=== PATIENT | male | born 1975 | race Hispanic/Latino ===

== ENCOUNTER 2018-03-27 00:52 | Emergency (ER) | payer OTHER, SELFPAY ==
--- NOTE | 2018-03-27 08:05 | RAD ---
THREE VIEWS LEFT FOOT: DATE: 03/27/2018. COMPARISON: None. HISTORY: Injury, trauma, pain. FINDINGS/IMPRESSION: The bones are markedly osteopenic, limiting detailed assessment. There are screws traversing the 1st , 2nd, 3rd, 4th, and 5th phalanges, associated with the interphalangeal joints on the basis of fusion . There are displaced fractures noted at the base of the 2nd and 3rd metatarsal heads, which appear chronic in nature. There is soft tissue swelling involving the forefoot. There are foci of subcutan eous gas in the region of the forefoot medially and dorsally. This gas is of uncertain significance/ etiology and may be on the basis of a gas-forming infectious process. Clinical correlation is essent ial. No evidence for dislocation. Results called to Dr. Phoenix at 7:38 a.m. 03/27/2018. CODE CR POS: [id number]
== END 2018-03-27 02:49 | disposition home or self-care (01) ==
LOC: ERS 00:52
DX: G89.18 Other acute postprocedural pain (principal); M79.672 Pain in left foot; M54.12 Radiculopathy, cervical region; F41.9 Anxiety disorder, unspecified; Z79.899 Other long term (current) drug therapy; Z79.891 Long term (current) use of opiate analgesic

== ENCOUNTER 2018-07-14 12:35 | Outpatient (CLI) | payer OTHER ==
--- NOTE | 2018-07-14 13:20 | RAD ---
RIGHT FOOT 2 VIEWS: Date: 07/14/18 HISTORY: Disability evaluation. FINDINGS: Small spur from the posterior calcaneus. Mild degenerative changes at the intertarsal and tarsometata rsal joints. Prior osteotomy involving the distal first metatarsal with screw transfixing this location. Small scr ew transfixes the head of the second metatarsal. There are metallic screws transfixing the IP joints of the first, third, fourth, and fifth toes. IMPRESSION: Degenerative and postoperative changes as described. POS: [facility]
--- NOTE | 2018-07-14 13:38 | RAD ---
CERVICAL SPINE AP AND LATERAL VIEWS: Date: 07/14/18 HISTORY: Disability. FINDINGS: There are mild degenerative changes of the cervical spine. Mild loss of disc space at C4-5. Mild ante rior osteophytes at C4-5 and C5-6 and C6-7. Vertebral body height is maintained. Posterior alignment is preserved. Mild facet hypertrophy is seen throughout the cervical spine. IMPRESSION: Mild to moderate degenerative changes as described. POS: [facility]
== END 2018-07-14 12:36 | disposition home or self-care (01) ==
LOC: BICRAD 12:35
PROVIDERS: ATTEND Psychiatry & Neurology Psychiatry
DX: Z02.71 Encounter for disability determination (principal); M47.812 Spondylosis without myelopathy or radiculopathy, cervical region; M19.071 Primary osteoarthritis, right ankle and foot; Z98.890 Other specified postprocedural states
CPT/HCPCS: 72040

== ENCOUNTER 2019-10-23 16:39 | Emergency (ER) | payer OTHER ==
[2019-10-25 12:26] LABS: SARS-CoV-2 MS2 Positive; SARS-CoV-2 N Gene Positive; SARS-CoV-2 S Gene Positive; SARS-CoV-2 orf1ab Positive
== END 2019-10-23 17:20 | disposition home or self-care (01) ==
LOC: ERS 16:39
DX: U07.1 COVID-19 (principal); M10.9 Gout, unspecified; F41.9 Anxiety disorder, unspecified; Z79.899 Other long term (current) drug therapy
CPT/HCPCS: 87635; 99283; U0003

== ENCOUNTER 2019-11-02 11:00 | Emergency (ER) | payer OTHER | END 2019-11-02 11:46 | disposition home or self-care (01) | LOC: ERS 11:00 | DX: U07.1 COVID-19 (principal); M10.9 Gout, unspecified; M06.9 Rheumatoid arthritis, unspecified; F41.9 Anxiety disorder, unspecified; Z79.891 Long term (current) use of opiate analgesic; Z79.899 Other long term (current) drug therapy | CPT/HCPCS: 99282 ==

== ENCOUNTER 2020-06-24 09:03 | Outpatient (CLI) | payer OTHER | END 2020-06-24 09:04 | disposition home or self-care (01) | LOC: DTY/OP 09:03 | PROVIDERS: ATTEND Surgery | DX: Z48.815 Encounter for surgical aftercare following surgery on the digestive system (principal); Z98.84 Bariatric surgery status | CPT/HCPCS: 97802 ==

== ENCOUNTER 2023-01-25 13:31 | Outpatient (CLI) | payer BC, OTHER | END 2023-01-25 13:32 | disposition home or self-care (01) | LOC: SCSMRI 13:31 | PROVIDERS: ATTEND Neuromusculoskeletal Medicine & OMM | DX: M54.12 Radiculopathy, cervical region (principal); M54.2 Cervicalgia | CPT/HCPCS: 72141 ==

== ENCOUNTER 2023-10-30 20:53 | Inpatient (IN) | payer SELFPAY ==
[2023-10-30] MEDS ORDERED: Ondansetron ODT 4 MG TAB SL PRN (21:15)
[2023-10-30] MEDS ORDERED: Ondansetron PF 4 MG/2 ML Vial IVP PRN ×2 (21:15→21:38)
[2023-10-30] MEDS ORDERED: Acetaminophen 650 MG Suppository PR PRN (21:38)
[2023-10-30] MEDS ORDERED: Ondansetron ODT 4 MG TAB PO PRN (21:38)
[2023-10-30] MEDS ORDERED: Acetaminophen 325 MG TAB PO PRN (21:38)
[2023-10-30] MEDS: NIRMATRELVIR 150 MG (X 2)/RITONAVIR 100 MG DOSE PACK PO SCH (23:03)
[2023-10-30 23:10] VITALS: BMI 41.1
[2023-10-31 00:06] LABS: #Basophils 0.04 10x3/uL (0.0-0.2); %Basophils 0.7 % (0.0-1.0); %Lymphocytes 22.5 % (21.0-51.0); %Monocytes 11.9 % (0.0-10.0); %Neutrophils 61.7 % (42.0-75.0); Hematocrit 34.8 % (42.0-52.0); Mean Corpuscular HGB CONC 34.5 g/dL (32.0-36.0); Mean Corpuscular Hemoglobin 33.5 pg (27.0-31.0); Mean Corpuscular Volume 97.2 fL (78.0-98.0); Mean Platelet Volume 10.1 fL (7.4-10.4); Platelet Count 227 10x3/uL (130-400); RBC Distribution Width 13.2 % (11.5-14.5); Red Blood Cell (RBC) Count 3.58 mill/uL (4.70-6.10)
[2023-10-31 00:22] LABS: Anion Gap 12 mmol/L (10-20); BUN (Urea Nitrogen) 18 mg/dL (8.9-20.6); Calc. Creatinine Clearance 254 mL/min (70-130); Calcium 8.4 mg/dL (7.8-10.44); Carbon Dioxide 22 mmol/L (22-29); Chloride 110 mmol/L (98-107); Estimated GFR 112; Glucose 99 mg/dL (70-105); Potassium 3.6 mmol/L (3.5-5.1); Sodium 140 mmol/L (136-145)
[2023-10-31] MEDS: tiZANidine HCl 4 MG TAB PO PRN (01:26)
[2023-10-31] MEDS: OXcarbazepine 300 MG TAB PO SCH ×2 (01:27→09:11)
[2023-10-31] MEDS: Lisinopril 10 MG TAB PO SCH (09:11)
[2023-10-31] MEDS: Allopurinol 300 MG TAB PO SCH (09:11)
[2023-10-31] MEDS: Famotidine 20 MG TAB PO SCH (09:11)
[2023-10-31] MEDS: DULoxetine 60 MG CAP PO SCH (09:11)
[2023-10-31] MEDS: Famotidine/PF 20 mg/2ml Vial SLOW IVP SCH (09:12)
[2023-10-31 09:43] VITALS: BMI 41.1
[2023-10-31 11:35] LABS: ALT (SGPT) 14 U/L (8-55); AST (SGOT) 17 U/L (5-34); Albumin 3.1 g/dL (3.5-5.0); Alkaline Phosphatase 79 U/L (40-110); Anion Gap 10 mmol/L (10-20); BUN (Urea Nitrogen) 17 mg/dL (8.9-20.6); Bilirubin, Total 0.8 mg/dL (0.2-1.2); Calc. Creatinine Clearance 251 mL/min (70-130); Calcium 8.8 mg/dL (7.8-10.44); Carbon Dioxide 24 mmol/L (22-29); Chloride 109 mmol/L (98-107); Estimated GFR 112; Globulin 3.2 g/dL (2.4-3.5); Glucose 95 mg/dL (70-105); Protein, Total 6.3 g/dL (6.0-8.3); Sodium 139 mmol/L (136-145)
[2023-10-31] MEDS: Vancomycin (BATCH) 2 GM in Premix 1 BAG IVPB SCH (17:47)
[2023-10-31] MEDS: cefTRIAXone\\ROCEPHIN 2 GM in Sodium Chloride 0.9% 100 ML IVPB SCH (17:47)
[2023-10-31] MEDS: Iron Fum,Ps Cmp/Vit C/Niacin [Integra] 1 CAPSULE Capsule PO SCH (18:26)
[2023-10-31] MEDS ORDERED: Vancomycin 1 GM in Premix 1 BAG IVPB SCH (21:00)
[2023-10-31] MEDS: metroNIDAZOLE 500 MG in Premix 1 BAG IVPB SCH (21:05)
[2023-10-31] MEDS: Enoxaparin 40 MG (0.4 mL) SYRINGE SC SCH (21:07)
[2023-11-01] MEDS ORDERED: Lidocaine 1% PF 5 ML VIAL ONE (13:56)
[2023-11-01] MEDS ORDERED: Ondansetron PF 4 MG/2 ML Vial ONE (13:56)
[2023-11-01] MEDS ORDERED: fentaNYL PF 100 MCG/2 ML SYRINGE ONE ×2 (13:56→15:34)
[2023-11-01] MEDS ORDERED: PROPOFOL 20 ML ONE ×2 (13:56→14:48)
[2023-11-01] MEDS ORDERED: Dexamethasone 20 MG/5 ML VIAL ONE (13:56)
[2023-11-01] MEDS ORDERED: metroNIDAZOLE 500 MG (100 mL) BAG ONE (14:36)
[2023-11-01] MEDS ORDERED: fentaNYL 50 mcg/mL 1 mL Vial ONE (15:38)
[2023-11-01] MEDS ORDERED: HYDROmorphone 0.5 MG/0.5 ML SYRINGE ONE (15:38)
[2023-11-01 17:54] LABS: Vancomycin, Random 13.4 ug/mL (See Comment)
[2023-11-01] MEDS: HYDROcodone/Acetaminophen 10/325 mg Tablet PO PRN (22:35)
[2023-11-02] MEDS: traMADol HCl 50 MG TAB PO PRN (13:08)
[2023-11-02] MEDS: Fluticasone Propionate Nasal Spray 16 gm Bottle NASAL SCH (20:52)
[2023-11-03 07:09] LABS: #Basophils Less than 0.03 10x3/uL (0.0-0.2); #Eosinphils Less than 0.03 10x3/uL (0.0-0.7); %Basophils 0.1 % (0.0-1.0); %Lymphocytes 6.9 % (21.0-51.0); %Monocytes 5.1 % (0.0-10.0); %Neutrophils 87.6 % (42.0-75.0); Hematocrit 33.6 % (42.0-52.0); Hemoglobin 11.7 g/dL (14.0-18.0); Mean Corpuscular HGB CONC 34.8 g/dL (32.0-36.0); Mean Corpuscular Hemoglobin 33.9 pg (27.0-31.0); Mean Corpuscular Volume 97.4 fL (78.0-98.0); Mean Platelet Volume 10.5 fL (7.4-10.4); Platelet Count 258 10x3/uL (130-400); RBC Distribution Width 12.8 % (11.5-14.5); Red Blood Cell (RBC) Count 3.45 mill/uL (4.70-6.10)
[2023-11-03 07:29] LABS: Vancomycin, Random 13.9 ug/mL (See Comment)
[2023-11-03 07:38] LABS: Anion Gap 9 mmol/L (10-20); BUN (Urea Nitrogen) 10 mg/dL (8.9-20.6); Calc. Creatinine Clearance 273 mL/min (70-130); Calcium 8.6 mg/dL (7.8-10.44); Carbon Dioxide 23 mmol/L (22-29); Chloride 107 mmol/L (98-107); Estimated GFR 115; Glucose 111 mg/dL (70-105); Magnesium 1.7 mg/dL (1.6-2.6); Potassium 3.7 mmol/L (3.5-5.1); Sodium 135 mmol/L (136-145)
[2023-11-03] MEDS: Dexamethasone 0.1% OPTH SOLN R EAR SCH (15:16)
[2023-11-03] MEDS: Carbamide Peroxide 6.5% Otic Drops 15 ml Bottle EA EAR SCH (21:01)
[2023-11-03] MEDS: Ciprofloxacin 0.2% Otic (0.25ML CONTAINER) R EAR SCH (21:07)
[2023-11-04 06:53] LABS: #Basophils Less than 0.03 10x3/uL (0.0-0.2); #Eosinphils Less than 0.03 10x3/uL (0.0-0.7); %Basophils 0.1 % (0.0-1.0); %Eosinophils 0.1 % (0.0-10.0); %Lymphocytes 14.9 % (21.0-51.0); %Monocytes 9.2 % (0.0-10.0); %Neutrophils 75.1 % (42.0-75.0); Hematocrit 34.4 % (42.0-52.0); Hemoglobin 11.8 g/dL (14.0-18.0); Mean Corpuscular HGB CONC 34.3 g/dL (32.0-36.0); Mean Corpuscular Hemoglobin 33.6 pg (27.0-31.0); Mean Platelet Volume 10.2 fL (7.4-10.4); Platelet Count 257 10x3/uL (130-400); Red Blood Cell (RBC) Count 3.51 mill/uL (4.70-6.10)
[2023-11-04 07:18] LABS: Anion Gap 10 mmol/L (10-20); BUN (Urea Nitrogen) 9 mg/dL (8.9-20.6); Calc. Creatinine Clearance 251 mL/min (70-130); Calcium 8.5 mg/dL (7.8-10.44); Carbon Dioxide 27 mmol/L (22-29); Chloride 106 mmol/L (98-107); Estimated GFR 112; Glucose 95 mg/dL (70-105); Magnesium 1.7 mg/dL (1.6-2.6); Potassium 3.4 mmol/L (3.5-5.1); Sodium 140 mmol/L (136-145)
[2023-11-04] MEDS: Potassium Bicarbonate/Cit Ac 20 MEQ TAB PO SCH (10:32)
[2023-11-04 11:58] VITALS: BP 157/83; TEMP 96.9
== END 2023-11-04 18:12 | disposition home or self-care (01) | DRG 559 ==
LOC: T4-B 20:53 → OBSVTOIN 21:38
PROVIDERS: ADMIT Family Medicine; ATTEND Family Medicine
DX: T84.69XA Infection and inflammatory reaction due to internal fixation device of other site, initial encounter (principal); U07.1 COVID-19; M86.8X7 Other osteomyelitis, ankle and foot; Z68.41 Body mass index [BMI] 40.0-44.9, adult; M10.9 Gout, unspecified; M06.9 Rheumatoid arthritis, unspecified; R00.1 Bradycardia, unspecified; E66.01 Morbid (severe) obesity due to excess calories; I10 Essential (primary) hypertension; F12.10 Cannabis abuse, uncomplicated; I44.0 Atrioventricular block, first degree; H60.91 Unspecified otitis externa, right ear; Z88.2 Allergy status to sulfonamides; Z79.899 Other long term (current) drug therapy; Z90.3 Acquired absence of stomach [part of]; Z79.2 Long term (current) use of antibiotics; Z89.421 Acquired absence of other right toe(s); Y79.2 Prosthetic and other implants, materials and accessory orthopedic devices associated with adverse incidents; Y92.89 Other specified places as the place of occurrence of the external cause; Y83.8 Other surgical procedures as the cause of abnormal reaction of the patient, or of later complication, without mention of misadventure at the time of the procedure
CPT/HCPCS: 36415; 80048; 80053; 80202; 82565; 83735; 85025; 93005; 93010; 97139; J0696; J1100; J1170; J1650; J2405; J2704; J3010; J3370; J3490; J8499

== ENCOUNTER 2024-01-04 21:27 | Emergency (ER) | payer SELFPAY ==
[2024-01-04] MEDS ORDERED: diphenhydrAMINE 50 MG/ML VIAL ONE (22:44)
[2024-01-04] MEDS ORDERED: Ketorolac Tromethamine 30 MG (1 mL) VIAL ONE (22:45)
[2024-01-04] MEDS ORDERED: Metoclopramide HCl 10 MG (2 mL) VIAL ONE (22:45)
[2024-01-04] MEDS ORDERED: Meclizine HCl 25 MG TAB ONE (22:45)
[2024-01-04 22:46] LABS: #Basophils 0.05 10x3/uL (0.0-0.2); %Basophils 0.9 % (0.0-1.0); %Eosinophils 3.3 % (0.0-10.0); %Lymphocytes 26.5 % (21.0-51.0); %Monocytes 11.9 % (0.0-10.0); %Neutrophils 57.2 % (42.0-75.0); Hematocrit 36.7 % (42.0-52.0); Hemoglobin 12.6 g/dL (14.0-18.0); Mean Corpuscular HGB CONC 34.3 g/dL (32.0-36.0); Mean Corpuscular Hemoglobin 33.7 pg (27.0-31.0); Mean Corpuscular Volume 98.1 fL (78.0-98.0); Platelet Count 238 10x3/uL (130-400); RBC Distribution Width 12.9 % (11.5-14.5); Red Blood Cell (RBC) Count 3.74 mill/uL (4.70-6.10)
[2024-01-04 23:15] LABS: ALT (SGPT) 13 U/L (8-55); AST (SGOT) 18 U/L (5-34); Albumin 3.9 g/dL (3.5-5.0); Alkaline Phosphatase 93 U/L (40-110); Anion Gap 14 mmol/L (10-20); BUN (Urea Nitrogen) 12 mg/dL (8.9-20.6); Bilirubin, Total 0.7 mg/dL (0.2-1.2); Calc. Creatinine Clearance 0 mL/min (70-130); Calcium 9.5 mg/dL (7.8-10.44); Carbon Dioxide 25 mmol/L (22-29); Chloride 107 mmol/L (98-107); Estimated GFR 108; Globulin 3.1 g/dL (2.4-3.5); Glucose 88 mg/dL (70-105); Potassium 3.8 mmol/L (3.5-5.1); Sodium 142 mmol/L (136-145)
[2024-01-05] MEDS ORDERED: OXcarbazepine 150 MG TAB PO SCH (01:00)
== END 2024-01-05 01:09 | disposition home or self-care (01) ==
LOC: ERS 21:27
DX: R51.9 Headache, unspecified (principal); R56.9 Unspecified convulsions
CPT/HCPCS: 36415; 80053; 85025; 96374; 96375; J1200; J1885; J2765